=== PATIENT | female | born 1970 | race Hispanic/Latino ===

== ENCOUNTER 2021-05-04 10:03 | Emergency (ER) | payer BC ==
[2021-05-04] MEDS ORDERED: METOCLOPRAMIDE 10 MG/2mL INJ ONE (11:03)
[2021-05-04] MEDS ORDERED: DIPHENHYDRAMINE 50 MG/ML VIAL ONE (11:03)
[2021-05-04] MEDS ORDERED: KETOROLAC 30 MG/ML INJ ONE (11:03)
[2021-05-04] MEDS ORDERED: NA CHLORIDE 0.9% 1,000 ML ONE (11:04)
[2021-05-04 11:13] LABS: Absolute Lymphocytes (CBC) 1.7 K/uL (0.7-4.9); Basophils % 0.5 % (0-1.3); Hematocrit 44.3 % (36.0-45.0); Lymphocytes % 18.7 % (15.3-44.8); MPV 7.3 fL (7.6-11.3); RBC Red Blood Cell Count 4.93 M/uL (3.86-4.86)
--- NOTE | 2021-05-04 11:16 | RAD REPORT ---
EXAM DESCRIPTION: CT - Head Brain Wo Cont - 05/04/2021 10:44 am CLINICAL HISTORY: HEADACHE COMPARISON: Head angio dated 09/15/2017 TECHNIQUE: Axial 5 mm thick images of the head were obtained without IV contrast. All CT scans are performed using dose optimization technique as appropriate and may include automated exposure control or mA/KV adjustment according to patient size. FINDINGS: No intracranial hemorrhage, mass, edema or shift of mid-line structures. No acute infarcti on changes seen. No abnormal extra-axial fluid collections. Ventricles are normal. Mastoid air cells and visualized portions of the paranasal sinuses are clear. No acute bony findings. No significant change from comparison. IMPRESSION: Negative non-contrast CT head examination.
[2021-05-04 11:30] LABS: Albumin 3.4 g/dL (3.4-5.0); Bilirubin Direct 0.1 mg/dL (0-0.2); Bilirubin Total 0.5 mg/dL (0.2-1.0); Potassium 3.3 mmol/L (3.5-5.1); Protein, Total 8.1 g/dL (6.4-8.2)
--- NOTE | 2021-05-04 12:30 | ER ---
Nurse's Notes [facility] Name: Heidi Najera Age: 50 yrs Sex: Female : 1970 Arrival Date: 05/04/2021 Time: 10:06 Bed 15 Private MD: Diagnosis: Headache;Abdominal pain, unspecified Presentation: 05/04 10:10 Chief complaint: Patient states: DIGGS x 4 days. Saw PCP on Wednesday for DIGGS and ABD pain and ch5 was given Sumatriptan, Bentyl, and Zofran.. ABD a gotten some better but DIGGS has not resolved. Coronavirus screen: Vaccine status: Patient reports receiving the 1st dose of the Covid vaccine. Ebola Screen: Patient negative for fever greater than or equal to 101.5 degrees Fahrenheit, and additional compatible Ebola Virus Disease symptoms Patient denies exposure to infectious person. Patient denies travel to an Ebola-affected area in the 21 days before illness onset. Initial Sepsis Screen: Does the patient meet any 2 criteria? No. Patient's initial sepsis screen is negative. Does the patient have a suspected source of infection? No. Patient's initial sepsis screen is negative. Risk Assessment: Do you want to hurt yourself or someone else?. 10:10 Method Of Arrival: Ambulatory 5 10:10 Acuity: KRIS 3 ch5 Triage Assessment: 10:15 Headache History: Other Migraines x 10 years. General: Appears uncomfortable, Behavior ch5 is cooperative. Pain: Pain currently is 10 out of 10 on a pain scale. Pain began 1 day ago. Also complains of nausea. Historical: - Allergies: 10:15 No Known Allergies; ch5 - PMHx: 10:15 Migraine; ch5 - Immunization history:: Adult Immunizations up to date. - Social history:: Smoking status: Patient denies any tobacco usage or history of. Screenin:18 Abuse screen: Denies threats or abuse. Denies injuries from another. Nutritional ch5 screening: No deficits noted. Tuberculosis screening: No symptoms or risk factors identified. Fall Risk None identified. Assessment: 10:17 Reassessment: No changes from previously documented assessment. Pain: Complains of pain ch5 in scalp. Pain: Pain currently is 10 out of 10 on a pain scale. Neuro: 10:17 GI: Reports diarrhea, nausea. ch5 11:38 Reassessment: Patient appears in no apparent distress at this time. Patient and/or aj2 family updated on plan of care and expected duration. Pain level reassessed. Patient is alert, oriented x 3, equal unlabored respirations, skin warm/dry/pink. 13:00 Reassessment: Patient appears in no apparent distress at this time. Patient and/or aj2 family updated on plan of care and expected duration. Pain level reassessed. Patient is alert, oriented x 3, equal unlabored respirations, skin warm/dry/pink. Patient states feeling better. Patient states symptoms have improved. Vital Signs: 10:10 BP 126 / 83; Pulse 86; Resp 20; Temp 97.8(T); Pulse Ox 99% on R/A; Weight 72.57 kg; ch5 Height 5 ft. 1 in. (154.94 cm); Pain 10/10; 10:18 BP 126 / 83; Pulse 82; Resp 18; Temp 97.8; Pulse Ox 98% ; Pain 10/10; ch5 13:00 BP 105 / 66; Pulse 71; Resp 18; Temp 97.8; Pulse Ox 100% ; aj2 10:10 Body Mass Index 30.23 (72.57 kg, 154.94 cm) 5 ED Course: 10:06 Patient arrived in ED. mr 10:15 Triage completed. 5 10:15 Arm band placed on left wrist. ch5 10:18 Patient has correct armband on for positive identification. Bed in low position. Call [facility] light in reach. 10:18 No provider procedures requiring assistance completed. 5 10:24 Familia Prater NP is PHCP. pm1 10:24 Juan Carlos Funez MD is Attending Physician. pm1 10:25 Nevaeh Patterson MD is Attending Physician. pm1 10:28 Darrian Houser is Primary Nurse. aj2 10:44 CT Head Brain wo Cont In Process Unspecified. EDMS 11:12 Basic Metabolic Panel Sent. aj2 11:12 CBC with Diff Sent. aj2 11:13 Hepatic Function Sent. aj2 11:13 Lipase Sent. aj2 11:38 No apparent distress. Resting quietly. aj2 11:38 Inserted saline lock: 20 gauge in left antecubital area, using aseptic technique. aj2 13:00 No apparent distress. Resting quietly. aj2 13:00 IV is patent, is intact. aj2 Administered Medications: 11:00 Drug: Benadryl (diphenhydrAMINE) 25 mg Route: IVP; Site: left antecubital; aj2 11:00 Drug: Ketorolac 30 mg Route: IVP; Site: left antecubital; aj2 11:00 Drug: Reglan (metoCLOPramide) 10 mg Route: IVP; Site: left antecubital; aj2 11:12 Drug: NS 0.9% 1000 ml Route: IV; Rate: 1000 ml; Site: left antecubital; aj2 Outcome: 12:29 Discharge ordered by MD. pm1 13:03 Discharged to home ambulatory. aj2 13:03 Condition: stable 13:03 Discharge instructions given to patient, Instructed on discharge instructions, follow up and referral plans. Demonstrated understanding of instructions, follow-up care, medications, Prescriptions given X 1. 13:04 Patient left the ED. aj2 Signatures: Dispatcher [employer] EDJeanne Navarro Patrick, BAGGAGE SECURITY CHECKER BAGGAGE SECURITY CHECKER pm1 Darrian Houser aj2 Moo Celeste, RN RN ch5
--- NOTE | 2021-05-04 12:30 | EDPHYS ---
Physician Documentation [facility] Name: Heidi Najera Age: 50 yrs Sex: Female : 1970 Arrival Date: 05/04/2021 Time: 10:06 Bed 15 Private MD: ED Physician Nevaeh Patterson HPI: 05/04 10:33 This 50 yrs old Female presents to ER via Ambulatory with complaints of pm1 Headache, Nausea, Abdominal Pain. 10:03 The patient describes the headache as aching, constant. pm1 10:33 The patient complains of pain to the forehead and left restoration. Onset: The pm1 symptoms/episode began/occurred 4 day(s) ago. Associated signs and symptoms: Pertinent positives: nausea, Pertinent negatives: fever, neck stiffness, vomiting. Severity of symptoms: in the emergency department the pain is unchanged, Abdominal pain resolved. Headache History: Denies prior headaches. The patient has been recently seen by a physician: the patient's primary care provider, with similar presenting complaints, Given Bentyl for abdominal pain and sumatriptan for headache. Patient presents to the ER with complaints of headache and abdominal pain. Headache has been unchanged for the past 4 days, but abdominal pain is resolved. Historical: - Allergies: 10:15 No Known Allergies; ch5 - PMHx: 10:15 Migraine; ch5 - Immunization history:: Adult Immunizations up to date. - Social history:: Smoking status: Patient denies any tobacco usage or history of. ROS: 10:33 Constitutional: Negative for fever, chills, and weight loss, Neck: Negative for injury, pm1 pain, and swelling, Cardiovascular: Negative for chest pain, palpitations, and edema, Respiratory: Negative for shortness of breath, cough, wheezing, and pleuritic chest pain. 10:33 Back: Negative for injury and pain, MS/Extremity: Negative for injury and deformity, Skin: Negative for injury, rash, and discoloration. 10:33 Abdomen/GI: Positive for nausea, Negative for abdominal pain, diarrhea, constipation. 10:33 Neuro: Positive for headache. 10:33 All other systems are negative. pm1 Exam: 10:33 Constitutional: This is a well developed, well nourished patient who is awake, alert, pm1 and in no acute distress. Head/Face: Normocephalic, atraumatic. 10:33 Back: No spinal tenderness. No costovertebral tenderness. Full range of motion. Skin: Warm, dry with normal turgor. Normal color with no rashes, no lesions, and no evidence of cellulitis. MS/ Extremity: Pulses equal, no cyanosis. Neurovascular intact. Full, normal range of motion. 10:33 Eyes: Exam is negative for acute changes, Extraocular movements: no acute changes, Conjunctiva: no acute changes, no injection. 10:33 ENT: External ear(s): are unremarkable, Ear canal(s): are normal, TM's: are normal, Mouth: Lips: normal, moist, Oral mucosa: normal, pink and intact, moist. 10:33 Neck: Exam negative for ROM/movement: is normal, is supple, no meningismus, no nuchal rigidity, negative Brudzinski's sign, negative Kernig's sign. 10:33 Cardiovascular: Rate: normal, Rhythm: regular, Pulses: no pulse deficits are appreciated. 10:33 Respiratory: Exam negative for acute changes, respiratory distress, shortness of breath. 10:33 Abdomen/GI: Inspection: abdomen appears normal, Palpation: abdomen is soft and non-tender, in all quadrants. 10:33 Neuro: Exam negative for acute changes, Orientation: is normal, Mentation: is normal, Motor: is normal, moves all fours, Sensation: is normal, no obvious gross deficits. Vital Signs: 10:10 BP 126 / 83; Pulse 86; Resp 20; Temp 97.8(T); Pulse Ox 99% on R/A; Weight 72.57 kg; ch5 Height 5 ft. 1 in. (154.94 cm); Pain 10/10; 10:18 BP 126 / 83; Pulse 82; Resp 18; Temp 97.8; Pulse Ox 98% ; Pain 10/10; ch5 13:00 BP 105 / 66; Pulse 71; Resp 18; Temp 97.8; Pulse Ox 100% ; aj2 10:10 Body Mass Index 30.23 (72.57 kg, 154.94 cm) [facility] MDM: 10:25 Patient medically screened. pm1 12:09 Data reviewed: vital signs. Data interpreted: Pulse oximetry: on room air is 98 %. pm1 Interpretation: normal. Counseling: I had a detailed discussion with the patient and/or guardian regarding: the historical points, exam findings, and any diagnostic results supporting the discharge/admit diagnosis, lab results, radiology results, the need for outpatient follow up, to return to the emergency department if symptoms worsen or persist or if there are any questions or concerns that arise at home. 12:26 ED course: Pain 1-09/18 with medication given in the ER. 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 pm05/04 10:33 Order name: Basic Metabolic Panel; Complete Time: 11:53 pm05/04 10:33 Order name: CBC with Diff; Complete Time: 11:53 pm05/04 10:33 Order name: CT Head Brain wo Cont; Complete Time: :53 pm05/04 10:33 Order name: Hepatic Function; Complete Time: :53 pm05/04 10:33 Order name: Lipase; Complete Time: 11:53 pm05/04 10:33 Order name: IV Saline Lock; Complete Time: 11:12 pm05/04 10:33 Order name: Labs collected and sent; Complete Time: 11:12 pm1 Administered Medications: 11:00 Drug: Benadryl (diphenhydrAMINE) 25 mg Route: IVP; Site: left antecubital; aj2 11:00 Drug: Ketorolac 30 mg Route: IVP; Site: left antecubital; aj2 11:00 Drug: Reglan (metoCLOPramide) 10 mg Route: IVP; Site: left antecubital; aj2 11:12 Drug: NS 0.9% 1000 ml Route: IV; Rate: 1000 ml; Site: left antecubital; aj2 Disposition Summary: 05/04/21 12:29 Discharge Ordered Location: Home pm1 Problem: new pm1 Symptoms: have improved pm1 Condition: Stable pm1 Diagnosis - Headache pm1 - Abdominal pain, unspecified pm1 Followup: pm1 - With: Emergency Department - When: As needed - Reason: Worsening of condition Followup: pm1 - With: Private Physician - When: 2 - 3 days - Reason: Recheck today's complaints, Continuance of care, Re-evaluation by your physician Discharge Instructions: - Discharge Summary Sheet pm1 - Abdominal Pain, Adult pm1 - General Headache Without Cause pm1 Forms: - Medication Reconciliation Form pm1 - Thank You Letter pm1 - Antibiotic Education pm1 - Prescription Opioid Use pm1 - Work release form eb Prescriptions: - [id number] - take 1 tablet by ORAL route every 6 hours As needed; 20 tablet; Refills: 0, pm1 Product Selection Permitted Addendum: 05/09/2021 04:37 Co-signature as Attending Physician, Nevaeh Patterson MD. m a2 Signatures: Dispatcher [employer] EDFamilia Juárez, CLAUDIA FABRICATOR [employer] pm1 Nevaeh Patterson MD MD ms2 Darrian Houser 2 Moo Celeste, RN RN ch5
[2021-05-04 13:11] VITALS: TEMP 97.8
[2021-05-04 13:14] VITALS: BP 105/66; O2SAT 100
== END 2021-05-04 13:04 | disposition home or self-care (01) ==
LOC: ER 10:03
DX: R51.9 Headache, unspecified (principal); R10.9 Unspecified abdominal pain
CPT/HCPCS: 85025; 80048; 36415; 80076; 83690; 70450; 96375; 96374; 99284; J2765; J1200; J7030